=== PATIENT | male | born 1945 | race Caucasian/White ===

== ENCOUNTER 2020-04-23 11:46 | Outpatient (CLI) | payer MEDICARE, SELFPAY ==
--- NOTE | ~2020-04-23 | CT_ITS ---
EXAMINATION: CT brain wo con DATE: 04/23/2020 12:28 INDICATION: Transient cerebral ischemic attack TECHNIQUE: Computed tomography (CT) of the head was performed without intravenous contrast. The dose- length product was 605.33 mGy-cm. Automated exposure control and iterative reconstruction technique w ere employed. COMPARISON: None FINDINGS: No acute intracranial hemorrhage, infarction, mass or mass effect. No ventriculomegaly or m idline shift. Basilar cisterns are patent. There are scattered mild periventricular and subcortical w jamie matter changes, most likely related to small vessel ischemic disease (microangiopathy). Paranasa l sinuses and mastoids are pneumatized. No depressed skull fractures. IMPRESSION: 1. No acute intracranial abnormality. 2: Chronic age-related findings. Reviewed, dictated and finalized at location B. IC POLICY MEDIATOR
--- NOTE | ~2020-04-23 | US_ITS ---
EXAMINATION: US carotid duplex BI EXAM DATE: 04/23/2020 12:40 INDICATION: Half an hour episode of expressive aphasia. TECHNIQUE: Grayscale, color and pulsed Doppler images of the cervical carotid arteries were obtained . The degree of vessel stenosis is placed in one of the following categories: normal, <50% stenosis, 50-69% stenosis, >=70% stenosis but less than near-occlusion, near-occlusion, or occlusion. Note that percent stenosis relative to normal distal artery lumen diameter is indirectly measured from velocit y measurements as described by Tejinder, et al. Radiology 2003; 229:340-346. There is no prior study fo r comparison. FINDINGS: RIGHT SIDE: Right common carotid artery peak systolic velocity (PSV in cm/s): 102 Right bulb/internal carotid artery peak systolic velocity (PSV in cm/s): 93 Right internal carotid artery end diastolic velocity (EDV in cm/s): 13 Right ICA/CCA peak systolic ratio: 0.9 Right external carotid artery peak systolic velocity (PSV in cm/s): 80 Right vertebral artery antegrade flow: yes There is no focal plaque identified. LEFT SIDE: Left common carotid artery peak systolic velocity (PSV in cm/s): 105 Left bulb/internal carotid artery peak systolic velocity (PSV in cm/s): 62 Left internal carotid artery end diastolic velocity (EDV in cm/s): 17 Left ICA/CCA peak systolic ratio: 0.6 Left external carotid artery peak systolic velocity (PSV in cm/s): 117 Left vertebral artery antegrade flow: yes There is no focal plaque identified. IMPRESSION: 1. Normal right internal carotid artery. 2. Normal left internal carotid artery. Reviewed, dictated and finalized at location A. WELDER
== END 2020-04-23 11:47 | disposition home or self-care (01) ==
PROVIDERS: PCP Internal Medicine; Visit Provider Internal Medicine
DX: G45.9 Transient cerebral ischemic attack, unspecified (principal)
CPT/HCPCS: 70450; 93880

== ENCOUNTER 2020-04-27 12:47 | Outpatient (CLI) | payer MEDICARE, SELFPAY ==
--- NOTE | 2020-04-27 13:00 | ECHO_ITS ---
Patient Info Name: Kody Paul Age: 74 years : 1945 Gender: Male Ht: 69 in Wt: 165 lbs BSA: 1.92 m2 BP: 143 / 90 mmHg Exam Date: 04/27/2020 1:14 PM Exam Location: [facility] Patient Status: Outpatient Admit Date: 04/27/2020 Staff Ordering Physician: Robert Yo MD Transition Mgr: Nilsa Guadarrama RDCS Attending Provider: Robert Yo MD Exam Type: CA echo doppler w bubble study Study Info Indications G45.9 - Transient cerebral ischemic attack, unspecified Complete two-dimensional, color flow and Doppler transthoracic echocardiogram is performed with agitated saline. Contrast/Agitated Saline Contrast/Ag. Saline: Agitated Saline Amount: 10.00 ml Administered By: Juma Yeager RN New IV Access: Inner Forearm and Right Site Condition: IV removed and No extravasation Summary 1. Left ventricular chamber dimension is normal. 2. Left ventricular systolic function is normal, estimated at 55-60%. 3. The left ventricular diastolic function is grade I diastolic dysfunction. 4. E/e' 8 is minimally elevated. 5. There is mild aortic valve sclerosis. 6. No pulmonary hypertension, estimated pulmonary arterial systolic pressure is 28 mmHg. Left Ventricle E/e' 8 is minimally elevated. Left ventricular chamber dimension is normal. Left ventricular systolic function is normal, estimated at 55-60%. The left ventricular diastolic function is grade I diastolic dysfunction. Right Ventricle Right ventricular chamber dimension is normal. Right ventricular systolic function is normal. Left Atria Left atrial chamber dimension is normal. Right Atria Right atrial chamber dimension is normal. Aortic Valve The aortic valve is trileaflet. There is mild aortic valve sclerosis. There is no aortic valve stenosis. There is no aortic valve regurgitation. Pulmonic Valve There is no pulmonic regurgitation. Mitral Valve There is no mitral valve stenosis. There is no mitral valve regurgitation. Tricuspid Valve There is no tricuspid valve regurgitation. No pulmonary hypertension, estimated pulmonary arterial systolic pressure is 28 mmHg. Pericardium/Pleural There is no pericardial effusion. Inferior Vena Cava Normal inferior vena cava with >50% collapse upon inspiration consistent with normal right atrial pressure, 5 mmHg. Aorta The aortic root size at the sinus of Valsalva is normal. Left Ventricular Outflow Tract Name Value Normal LVOT 2D LVOT Diameter 1.9 cm LVOT Doppler LVOT Peak Gradient 2 mmHg LVOT Mean Gradient 1 mmHg LVOT VTI 14 cm LVOT VTI/AV VTI Ratio 0.5 LVOT Stroke Volume 42 ml LVOT CO 2.2 l/min LVOT CI 1.1 l/min/m2 Mitral Valve Name Value Normal
== END 2020-04-27 12:48 | disposition home or self-care (01) ==
PROVIDERS: PCP Internal Medicine; Visit Provider Internal Medicine
DX: G45.9 Transient cerebral ischemic attack, unspecified (principal)
CPT/HCPCS: 93306; 96375

== ENCOUNTER 2022-04-12 11:26 | Emergency (ER) | payer MEDICARE, SELFPAY ==
[2022-04-12] VITALS (26 sets, daily range): BP systolic 125–160; BP diastolic 74–91; PULSE 69–90; RESP 14–25; TEMP 36.6–37.1; O2SAT 94–100
--- NOTE | ~2022-04-12 | CT_ITS ---
EXAMINATION: CT brain wo con DATE: 04/12/2022 14:56 INDICATION: Headache. Right eye visual loss. TECHNIQUE: Computed tomography (CT) of the head was performed without intravenous contrast. The mA wa s adjusted according to patient size. Iterative reconstruction technique was employed. The dose-lengt h product was 605.33 mGy-cm. COMPARISON: Head CT 04/23/2020 FINDINGS: There is an acute intraparenchymal hematoma in left occipital lobe with surrounding vasogen ic edema. There are scattered areas of low attenuation in the cerebral white matter. There is no acut e ischemic infarct or abnormal mass lesion. The ventricles are normal in size. There is mild mucosal thickening in the paranasal sinuses. The orbits are normal. The mastoid air cells are normal. IMPRESSION: 1. Acute intraparenchymal hematoma in left occipital lobe. 2. Moderate nonspecific cerebral white matter disease, which likely represents chronic small vessel i schemic disease. Reviewed, dictated and finalized at location A. OBIOLOGY LAB MANAGER IMPRESSION: 1. Acute intraparenchymal hematoma in left occipital lobe. 2. Moderate nonspecific cerebral white matter disease, which likely represents chronic small vessel ischemic disease.
--- NOTE | 2022-04-12 13:13 | ECG_ITS ---
Measurements Intervals [place] Rate: 68 P: 60 UT: 192 QRS: 17 QRSD: 97 T: 51 QT: 374 QTc: 400 Interpretive Statements SINUS RHYTHM INCOMPLETE RIGHT BUNDLE BRANCH BLOCK BORDERLINE ECG NO PREVIOUS ECG AVAILABLE FOR COMPARISON Electronically Signed On 04-12-2022 14:11:53 [employer] by Luis Enrique Thomas D.O.
[2022-04-12 13:28] LABS: Basophils Percent Auto 0.6 % (0.2-1.2); Eosinophils Absolute Auto 0.3 K/mm3 (0-0.3); Eosinophils Percent Auto 4.6 % (0-4.4); Hematocrit 41.7 % (42.0-52.0); Hemoglobin 13.4 g/dL (14.0-18.0); Immature Granulocyte Absolute 0.02 K/mm3 (0.00-0.031); Immature Granulocyte Percent A 0.3 % (0-0.5); Lymphocytes Absolute Auto 1.42 K/mm3 (0.9-3.2); Lymphocytes Percent Auto 20.4 % (18.3-44.2); Mean Corpuscular HGB Conc 32.1 g/dl (32-36); Mean Corpuscular Hemoglobin 31.4 pg (26-34); Mean Corpuscular Volume 97.7 fl (80-100); Mean Platelet Volume 9.6 fl (7.4-10.4); Monocytes Absolute Auto 0.9 K/mm3 (0.1-0.6); Monocytes Percent Auto 12.5 % (2.6-8.5); Neutrophils Absolute Auto 4.3 K/mm3 (1.3-6.7); Neutrophils Percent Auto 61.6 % (45.5-73.1); Platelet Count Result 223 k/mm3 (150-375); Red Blood Count 4.27 M/mm3 (4.6-6.20); Red Cell Distribution Width 12.5 % (11.5-14.5)
[2022-04-12 13:41] LABS: Alanine Aminotransferase 39 U/L (6-50); Albumin Level 4.3 g/dL (3.5-5.1); Alkaline Phosphatase 91 U/L (38-126); Anion Gap 8 mmol/L (8-16); Aspartate Amino Transferase 32 U/L (17-59); Bilirubin,Total 1.1 mg/dL (0.2-1.3); Blood Urea Nitrogen 15 mg/dL (9-20); Carbon Dioxide 24 mmol/L (22-30); Chloride 104 mmol/L (98-107); Estimated CRCL calculation 75 ml/min; Estimated Glomerular Filt Rate > 60; Glucose 132 mg/dL (65-110); Potassium 4.2 mmol/L (3.4-5.0); Sodium 136 mmol/L (137-145)
[2022-04-12 14:24] LABS: INR 1.1; Prothrombin Time 13.7 Seconds (11.1-14.7)
[2022-04-12 14:25] LABS: Partial Thromboplastin Time 26.7 SECONDS (22.3-36.8)
--- NOTE | 2022-04-12 15:16 | ED.NEUROSD ---
HPI - Neuro Symptoms/Deficit General Chief Complaint: Neuro Symptoms/Deficit <Martina Restrepo PA-C - Last Filed: 04/12/22 18:13> Stated Complaint: slight vision loss (R)and headache since yesterday <Martina Restrepo PA-C - Last Filed: 04/12/22 18:13> Time Seen by Provider: 04/12/22 14:18 <Martina Restrepo PA-C - Last Filed: 04/12/22 18:13> Source: patient <DOROTHY Hinds Last Filed: 04/12/22 18:13> Mode of arrival: ambulatory <DOROTHY Hinds Last Filed: 04/12/22 18:13> Limitations: no limitations <DOROTHY Hinds Last Filed: 04/12/22 18:13> History of Present Illness HPI Narrative: This is a 76 year old male that presents to the ER for vision problems ongoing since yesterday. Reports when he woke up yesterday and tried to read the paper he noted that he was having trouble with the right side of his vision. Reports he made and appointment and saw an manager pharmacy this morning. He was prompted to be seen in the ER for further evaluation. He denies any recent injuries. No other focal neurologic symptoms. He is not on any anticoagulation. <Martina Restrepo PA-C - Last Filed: 04/12/22 18:13> Related Data Home Medications: Home Medications Medication Instructions Recorded Confirmed aspirin 81 mg tablet,delayed 81 mg PO DAILY 05/01/19 02/10/22 release (Adult Low Dose Aspirin) coenzyme Q10 100 mg capsule (Co 100 mg PO DAILY 05/01/19 02/10/22 Q-10) multivitamin 1 tablet PO DAILY 05/01/19 02/10/22 omega-3 fatty acids 1,000 mg 1,000 mg PO BID 05/01/19 02/10/22 capsule (Fish Oil Concentrate) metformin 500 mg tablet 1,000 mg PO BID 04/23/20 02/10/22 insulin glargine 100 unit/mL (3 12 unit subcut DAILY 02/10/22 02/10/22 mL) subcutaneous pen (Lantus Solostar U-100 Insulin) <Martina Restrepo PA-C - Last Filed: 04/12/22 18:13> Allergies/Adverse Reactions: Allergies Allergy/AdvReac Type Severity Reaction Status Date / Time No Known Allergies Allergy Verified 02/10/22 11:03 <Martina Restrepo PA-C - Last Filed: 04/12/22 18:13> Review of Systems Review of Systems: CONSTITUTIONAL: Denies fever EYES: Reports visual changes. Denies redness, or discharge. CARDIOVASCULAR: Denies chest pain GASTROINTESTINAL: Denies abdominal pain, nausea, vomiting NEUROLOGIC: Reports headache. Denies numbness, or weakness. <Martina Restrepo PA-C - Last Filed: 04/12/22 18:13> All systems reviewed & are unremarkable except as noted in HPI and below <Martina Restrepo PA-C - Last Filed: 04/12/22 18:13> PMFSH Past Medical History Medical History: Medical History (Updated 04/12/22 @ 15:33 by Martina Restrepo PA-C) Benign prostatic hyperplasia Mixed hyperlipidemia TIA (transient ischemic attack) Type 2 diabetes mellitus without complication, with long-term current use of insulin <Martina Restrepo PA-C - Last Filed: 04/12/22 18:13> Family History Family History: Family History Sibling Diabetes mellitus, Onset Age: 85 Family history of obesity, Onset Age: 75 Patient's sister is , Onset Age: 86 Family history of Alzheimer's disease, Onset Age: 75 Father Patient's father is , Onset Age: 76 Mother Family history of Alzheimer's disease, Onset Age: 84 <Martina Restrepo PA-C - Last Filed: 04/12/22 18:13> Social History Social History: Social History Smoking status: Never smoker Second hand tobacco smoke exposure: No Alcohol intake: never Substance use: never <Martina Restrepo PA-C - Last Filed: 04/12/22 18:13> Exam Narrative: GENERAL: Well-appearing, well-nourished, and in no acute distress. HEAD: Normocephalic, atraumatic. EYES: EOMI. Right eye is dilated as he was just at his manager pharmacy ENT: Nares clear, no rhinorrhea or epistaxis. Mucous membrane
[2022-04-12] MEDS: levETIRAcetam 1000MG/NACL100ML 1,000 MG/100 ML BAG 400 MG IVPB (16:10)
[2022-04-12 16:40] LABS: SARS-CoV-2 RNA PCR Negative
[2022-04-12] MEDS: TUBING, BLOOD SET 1 EACH XX (18:23)
[2022-04-12] MEDS: SODIUM CHLORIDE 0.9% IV 250 ML 30 ML IV CONT (18:23)
[2022-04-12 18:30] LABS: Glucose Point of Care 115 mg/dl (65-105)
== END 2022-04-12 18:37 | disposition short-term general hospital (02) ==
PROVIDERS: Physician Assistant; Emergency Provider Emergency Medicine; PCP Internal Medicine
DX: I61.8 Other nontraumatic intracerebral hemorrhage (principal); Z20.822 Contact with and (suspected) exposure to COVID-19; E11.9 Type 2 diabetes mellitus without complications; Z79.4 Long term (current) use of insulin; Z86.73 Personal history of transient ischemic attack (TIA), and cerebral infarction without residual deficits; E78.5 Hyperlipidemia, unspecified; H53.9 Unspecified visual disturbance
CPT/HCPCS: 36415; 36430; 70450; 80053; 82948; 85025; 85610; 85730; 86900; 86901; 93005; 96365; 99291; J1953; J7050; P9034; U0003; U0005

== ENCOUNTER → 2022-06-10 12:02 | Outpatient (CLI) | payer MEDICARE, SELFPAY ==
--- NOTE | ~2022-06-10 | MR_ITS ---
MRI of the brain Clinical History: Intraparenchymal hemorrhage Technique: Axial and sagittal T1-weighted images were acquired. These were followed by axial T2-weigh gigi, diffusion weighted, gradient, and FLAIR images. Following intravenous administration of 14 cc Mu ltiHance gadolinium, T1-weighted fat-sat imaging was performed in the axial and coronal planes. Correlation made with noncontrast brain CT dated 04/12/2022. Findings: There is signal abnormality in the left occipital lobe at the site of previous acute parenc hymal hemorrhage, with low signal on gradient images, focal curvilinear peripheral intrinsic T1 hyper intensity, and curvilinear peripheral T2 hypointensity. Postcontrast images demonstrate apparent lavonne pheral enhancement, somewhat questionable nodular area of enhancement (series 9 image 12). There is mild to moderate chronic background white matter disease otherwise and FLAIR images. No othe r abnormal postcontrast enhancement identified. Ventricles and subarachnoid spaces are unremarkable. Orbits are unremarkable. Paranasal sinuses and m astoid air cells are clear. Major intracranial flow voids are intact. IMPRESSION: Focal enhancement in the left occipital lobe at the site of prior hemorrhage, with surrounding hemosi rika. Enhancement is somewhat nonspecific, and could be seen in the setting of subacute evolving hem atoma, however underlying enhancing small mass is not excluded. Small cavernoma is a potential consid eration, although cavernoma typically does not enhance. Additional follow-up pre and postcontrast MR in 3 months recommended to reassess. Background mild to moderate chronic microvascular ischemic changes. Reviewed, dictated and finalized at location . ROOM CLERK IMPRESSION: Focal enhancement in the left occipital lobe at the site of prior hemorrhage, w ith surrounding hemosiderin. Enhancement is somewhat nonspecific, and could be seen in the setting of subacute evolving hematoma, however underlying enhancing small mass is not excluded. Small cavernoma is a potential consideration, alth ough cavernoma typically does not enhance. Additional follow-up pre and postcon trast MR in 3 months recommended to reassess. Background mild to moderate chronic microvascular ischemic changes.
== END ==
PROVIDERS: PCP Internal Medicine; Visit Provider Neurological Surgery
DX: I61.9 Nontraumatic intracerebral hemorrhage, unspecified (principal)
CPT/HCPCS: 70553; A9577

== ENCOUNTER → 2022-09-19 09:44 | Outpatient (CLI) | payer MEDICARE, SELFPAY ==
--- NOTE | ~2022-09-19 | MR_ITS ---
EXAMINATION: MR brain/brain stem wo/w con DATE: 09/19/2022 10:32 INDICATION: Nontraumatic intracranial hemorrhage, unspecified. TECHNIQUE: Magnetic resonance imaging (MRI) of the brain and brainstem was performed without and with 14 mL MultiHance intravenous contrast. COMPARISON: Brain MRI 06/10/2022, head CT 04/12/2022 FINDINGS: There is chronic encephalomalacia in left occipital lobe. There is contrast enhancement in this area measuring 10 x 5 mm, decreased from 12 x 10 mm on 06/10/2022. There are scattered areas of n onspecific increased T2-weighted signal intensity in the cerebral white matter. The ventricles are no rmal in size. The orbits are normal. There is a mucous retention cyst in left maxillary sinus. The ma stoid air cells are normal. IMPRESSION: 1. Chronic encephalomalacia from a prior episode of intraparenchymal hemorrhage in left occipital lob e with interval improvement in enhancement in this area, likely benign. 2. Stable moderate nonspecific cerebral white matter disease, which likely represents chronic small v essel ischemic disease. Reviewed, dictated and finalized at location A. IMPRESSION: 1. Chronic encephalomalacia from a prior episode of intraparenchymal hemorrhage in left occipital lobe with interval improvement in enhancement in this area, likely benign. 2. Stable moderate nonspecific cerebral white matter disease, which likely repr esents chronic small vessel ischemic disease.
== END ==
PROVIDERS: Visit Provider Neurological Surgery
DX: I62.9 Nontraumatic intracranial hemorrhage, unspecified (principal); R93.0 Abnormal findings on diagnostic imaging of skull and head, not elsewhere classified
CPT/HCPCS: 70553; A9577

== ENCOUNTER → 2023-02-20 09:40 | Outpatient (CLI) | payer MEDICARE, SELFPAY ==
--- NOTE | ~2023-02-20 | MR_ITS ---
EXAMINATION: MR brain/brain stem wo/w con DATE: 02/20/2023 10:31 INDICATION: Intracranial hemorrhage. TECHNIQUE: Magnetic resonance imaging (MRI) of the brain and brainstem was performed without and with 14 mL MultiHance intravenous contrast. COMPARISON: Brain MRI 09/19/2022, head CT 04/12/2022 FINDINGS: There is chronic encephalomalacia in left occipital lobe with old blood products. There are scattered areas of nonspecific increased T2-weighted signal intensity in the cerebral white matter. There is no acute ischemic infarct or abnormal mass lesion. The ventricles are normal in size. There is a mucous retention cyst in left maxillary sinus. The mastoid air cells are normal. The orbits are normal. IMPRESSION: 1. Chronic encephalomalacia in left occipital lobe with old blood products. 2. Stable moderate nonspecific cerebral white matter disease, which likely represents chronic small v essel ischemic disease. Reviewed, dictated and finalized at location E. IMPRESSION: 1. Chronic encephalomalacia in left occipital lobe with old blood products. 2. Stable moderate nonspecific cerebral white matter disease, which likely repr esents chronic small vessel ischemic disease.
== END ==
DX: I62.9 Nontraumatic intracranial hemorrhage, unspecified (principal); R90.82 White matter disease, unspecified
CPT/HCPCS: 70553; A9577

== ENCOUNTER 2024-09-11 15:55 | Emergency (ER) | payer MEDICARE, SELFPAY ==
--- NOTE | 2024-09-11 16:03 | ED_ITS ---
HPI - Nausea/Vomiting/Diarrhea General Chief complaint: Nausea/Vomiting/Diarrhea Stated complaint: stomach issues Time Seen by Provider: 09/11/24 16:19 Source: patient Mode of arrival: ambulatory Limitations: no limitations History of Present Illness HPI Narrative: here for stomach issues since Monday. he reports on Monday was throwing up a lot. He reports on Monday he had fever and body aches. He also reports headaches. He reports on Monday /Monday he had diarrhea, and now his stools are soft but no longer diarrhea. He reports he is overall feeling better however still nauseous. He does report he slept all day on Monday and still feels somewhat tired and weak. he is pushing fluids and doing his best to drink as much as possible. He reports drinking a sugar free Gatorade yesterday. Today he reports breakfast this morning of toast and eggs. He reports a plain lunch as well with [place] and sugar free Jell-O. he reports drinking 32 oz of water so far today. he reports taking Tylenol with some relief. He has a history of diabetes in the Dexcom device. He reports following his blood sugar frequently and adjusting his insulin per sick day plan. He reports on Monday and Monday his blood sugars were initially high but now they have come down and are in his normal range again. Denies any hypoglycemia. Denies any cough or shortness of breath. Denies any sick contacts. Denies anyone else sick at home. Related Data Home Medications ?Medication ?Instructions ?Recorded ?Confirmed ?Last Taken ?Type coenzyme Q10 100 mg capsule (Co 100 mg PO DAILY 05/01/19 09/11/24 Unknown History Q-10) multivitamin 1 tablet PO DAILY 05/01/19 09/11/24 Unknown History omega-3 fatty acids 1,000 mg 1,000 mg PO DAILY 02/23/23 09/11/24 Unknown History capsule (Fish Oil Concentrate) Allergies Allergy/AdvReac Type Severity Reaction Status Date / Time No Known Allergies Allergy Verified 09/11/24 15:59 Review of Systems Review of Systems: CONSTITUTIONAL: Denies chills, or sweats. Reports fever. reports feeling tired. EYES: Denies visual changes, redness, or discharge. ENT: Denies rhinorrhea, congestion, sore throat, or otalgia. CARDIOVASCULAR: Denies chest pain, palpitations, or edema. RESPIRATORY: Denies cough or dyspnea. GASTROINTESTINAL: Denies abdominal pain. Reports nausea, vomiting, and diarrhea. GENITOURINARY: Denies dysuria or hematuria. SKIN: Denies rash or itching. MUSCULOSKELETAL: Reports body aches. NEUROLOGIC: Denies numbness, or weakness. reports headaches. PSYCHIATRIC: Denies anxiety or depression. All other systems reviewed are negative, except as documented in HPI. [facility] Past Medical History Medical History Cataracts, both eyes Intracranial hemorrhage TIA (transient ischemic attack) Benign prostatic hyperplasia Mixed hyperlipidemia Type 2 diabetes mellitus without complication, with long-term current use of insulin Family History Family History Sibling Diabetes mellitus, Onset Age: 85 Family history of obesity, Onset Age: 75 Patient's sister is , Onset Age: 86 Family history of Alzheimer's disease, Onset Age: 75 Father Patient's father is , Onset Age: 76 Mother Family history of Alzheimer's disease, Onset Age: 84 Social History Social History Smoking status: Never smoker Second hand tobacco smoke exposure: No Alcohol intake: never Substance use: never Do You Feel Safe in your Home?: Yes Lack of Transportation: No Lack of Food: Never True Current Housing: I Have Housing Concerned About Future Housing: No Difficulty Paying Gas/Electric Bills: No Difficulty Paying for Meds: No Currently Unemployed: No Difficulty w/ Childcare or Family Care: No Living arrangements: with family Occupation/Education: retired Gender identity (if verbalized by the patient): Male Sexual Orientation (if Verbalized by the Patient): Straight or Heterosexual Spiritual care concerns: No Agree to blood products: Yes Comments At time of signature, I have reviewed and agree with nursing past medical, surgical, social and family history unless otherwise noted. Please see nursing chart for further information. There is no relevant family history pertinent to the presenting complaint. Exam Narrative: GENERAL: This is a well-nourished, well-developed patient, in no apparent distress. HEAD: normocephalic, atraumatic. EYES: Sclera clear/white. EARS: External ears normal without drainage. NOSE: External nose normal with no obvious nasal discharge. THROAT: Mucous membranes moist. NECK: Trachea midline. CARDIOVASCULAR: Regular rate and rhythm without murmurs, gallops, or rubs. RESPIRATORY: Clear to auscultation. Breath sounds equal bilaterally. No wheezes, rales, or rhonchi. GASTROINTESTINAL: Abdomen soft, non-tender, nondistended. Bowel sounds are hyperactive.No guarding. SKIN: warm, Dry, intact with no suspicious lesions or rash, good texture and turgor. NEURO: awake, alert, and oriented to person, place and time. There were no obvious focal neurologic abnormalities. EXTREMITIES: No joint tenderness, effusion, or edema noted. Course Course Level of Care: Express Care Visit Vital Signs Vital signs: Reviewed MDM - Nausea/Vomiting/Diarrhea MDM Narrative Medical decision making narrative: Patient is aware of diagnosis, understands and agrees to treatment plan. Anticipatory guidance was given. reviewed he should continue following his Dexcom closely as well as his diabetes sick plan. He should continue to push fluids including sugar free electrolyte containing fluids such as Gatorade or Powerade. Continue sugar free Jell-O. Reviewed BRAT diet and continuing soft plain foods as tolerated. Discussed physical exam findings with patient and reviewed prescriptions. Patient agrees to follow-up as directed and is aware of reasons to seek care at the emergency department. Discharge instructions were reviewed with the patient, as well as provided in writing per nursing staff. All questions have been answered, and the patient denies any further questions related to discharge or discharge plan. Discharge Plan Discharge Clinical Impression: Gastroenteritis Patient Disposition: Home Condition: Stable Instructions: Gastroenteritis (ED), Acute Nausea and Vomiting (ED) Additional Instructions: Take medications as prescribed and follow printed instructions. May take over the counter acetaminophen and/or ibuprofen by mouth as needed/dir ected for pain/fever. Push fluids and soft diet; advance as tolerated. Nutrition is important - eat small frequent meals. Call your Primary Care Doctor today to make a follow-up appointment. Go to the ER for any worsening symptoms or concerns Patient Language: Occitan Prescriptions: New ondansetron 4 mg tablet,disintegrating 4 mg PO Q6H PRN (Reason: nausea and vomiting) Qty: 12 0RF No Action insulin glargine [Basaglar KwikPen U-100 Insulin] 100 unit/mL (3 mL) insulin pen 16 unit subcut QPM Qty: 15 1RF atorvastatin 40 mg tablet See Rx Instructions .ROUTE .COMPLEX Qty: 90 1RF Dose Instruction: Take 1 tablet by mouth once daily Rx Instructions: Take 1 tablet by mouth once daily finasteride 5 mg tablet See Rx Instructions .ROUTE .COMPLEX Qty: 90 1RF Dose Instruction: Take 1 tablet by mouth once daily Rx Instructions: Take 1 tablet by mouth once daily glipizide 5 mg tablet See Rx Instructions .ROUTE .COMPLEX Qty: 180 1RF Dose Instruction: Take 1 tablet by mouth twice daily Rx Instructions: Take 1 tablet by mouth twice daily metformin 500 mg tablet See Rx Instructions .ROUTE .COMPLEX Qty: 360 1RF Dose Instruction: Take 2 tablets by mouth twice daily Rx Instructions: Take 2 tablets by mouth twice daily coenzyme Q10 [Co Q-10] 100 mg capsule 100 mg PO DAILY multivitamin Tablet 1 tablet PO DAILY omega-3 fatty acids [Fish Oil Concentrate] 1,000 mg capsule 1,000 mg PO DAILY (DME) lancets 33 gauge misc See Rx Instructions .Route Qty: 100 1RF Rx Instructions: check blood sugar 3 times daily (DME) Dexcom G7 Video Network Engineer Misc See Rx Instructions .Route Qty: 1 0RF Rx Instructions: Continuous glucose monitoring As directed (DME) Dexcom G7 Sensor Device See Rx Instructions .Route Qty: 3 11RF Rx Instructions: Continuous glucose monetor, replace every 10 days (DME) OneTouch Ultra Test Strip See Rx Instructions .Route Qty: 300 3RF Rx Instructions: Test glucose 3xday As directed (DME) pen needle, diabetic 31 gauge x 3/16 needle See Rx Instructions .Route Qty: 100 2RF Rx Instructions: As directed Follow-up/Referrals: Mary Parra APRN [Primary Care Provider] - Time of Disposition: 16:46
[2024-09-11 16:04] VITALS: BP 110/67; PULSE 83; RESP 16; TEMP 36.7; O2SAT 98
[2024-09-11 16:32] LABS: EDCOVIDSCREEN Negative (Negative); EDINFLUASCREEN Negative (Negative); EDINFLUBSCREEN Negative (Negative)
--- OUTSIDE RECORDS SUMMARY | 2024-09-11 17:34 | XMS_ITS | Encounter Summary ---
Author Organization [facility] Healthcare Address [address] [place] [address] Care Team Providers Care Branch Services Manager Name Role Phone Robert Yo MD Primary Care Provider [phone] Encounter Details Date Type Department Care Team (Late st Contact Info) Description 08/13/2024 Results Follow-Up [facility] of [facility] [address] [facility] [address] [place] [address] [place]és[place] [address] [address] Social History Tobacco Use Types Packs/Day Years Used Date Smoking Tobacco: Never Smokeless Tobacco: Never Sex and Gender Information Value Date Recorded Sex Assigned at Not on file Legal Sex 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
--- OUTSIDE RECORDS SUMMARY | 2024-09-11 17:34 | XMS_ITS | Continuity of Care Document ---
Author Organization [facility] Address [address] [facility] [address] [place] [address] Phone Care Team Providers Care Medical Office Clerk Name Role Phone Paige Morejon Unavailable Unavailable Procedures Procedure Date Office/outpatient Visit, Est Dilated Retinal Exam W Interpretation Oc Office/outpatient Visit, Est Visual Field Examination(s) Office/outpatient Visit, Est Eye Exam & Treatment Eye Exam & Treatment Advance Directives Directive Yes / No Effective Date File Name No Information Encounters Encounter Description Practice Location Reason(s) For Visit Diagnoses Date Provider Providers Copied on Encounter Office/outpat ient Visit, [facility], [address] [place] [address] [address], [place], [place], [id number], [place] tel:[phone] [facility] No Information 8201 0 Darleen Alfredo [address] , [address], [place], [place], [facility], [place]. tel:[phone] Office/outpat ient Visit, [facility], [address] [place] [address] [address], [place], [place], [id number], [place] tel:[phone] [facility] No Information 3-201 0 Darleen Alfredo [address] , [address], [place], [address], [place]. tel:[phone] [facility], [address] [place] [address] [address], [place], [place], [id number], tel:[phone] [facility] No Information Dec-0 4-200 9 Darleen Gibson. [address] , [address], [place], [place], [facility], . tel:[phone] Referring Provider: Ariadne [address], [place], [place], [facility]. tel:[phone] Office/outpat ient Visit, [facility], [address] [place] [address] [address], [place], [place], [id number], tel:[phone] [facility] No Information Oct-1 3-200 9 Darleen Alfredo [address] [facility] , [address], [place], [place], [facility], . tel:[phone] [facility], [address] [place] [address] [address], [place], [place], [id number], tel:[phone] [facility] No Information Sep-0 9-200 8 Darleen Gibson. [address] , [address], [place], [place], [facility], . tel:[phone] [facility], [address] [place] [address] [address], [place], [place], [id number], tel:[phone] [facility] No Information Aug-2 8-200 7 Darleen Alfredo [address] , [address], [place], [place], [facility], . tel:[phone] Family History Family Member Type Diagnosis Age At Onset No Information Payers Payer name Insurance type Covered alliance party ID Authoriza tion(s) [place] [id number] [place] [id number] Social History Type Description Quantity Date Captured Comments Sex Male Smoking Status No Information Chief Complaint And Reason For Visit No Information Reason For Referral Reason For Referral No Information History Of Present Illness Encounter Date Complaint History Of Prese nt Illness No Information Functional Status Date Functional Assessmen t No Information Instructions Date Instruction Additional Infor mation No Information Assessments Type Assessment Date No Information Patient Care Teams Name Effective Dates (start - stop) Status Members No Information
--- OUTSIDE RECORDS SUMMARY | 2024-09-11 17:34 | XMS_ITS | Referral Summary ---
Author Organization [facility] Medical Office Building B Address [address] [place] [address] Care Team Providers Care Board Certified Orthodontist Name Role Phone Robert Yo MD Primary Care Provider [phone] Encounters Date Type Department Care Team Description 08/14/2024 Telephone [facility] Specialists of [address] [address] César Bright MD 08/13/2024 Results Follow-Up [facility] Specialists of [address] [address] César Bright MD 08/12/2024 3:17 PM CDT - 08/12/2024 11:59 PM CDT Hospital Encounter [address] [address] Type 2 diabetes mellitus with hyperglycemia, with long-term current use of insulin (HCC) Discharge Disposition: Discharge to home or self care 08/12/2024 9:45 AM CDT Lab [facility] Outpatient Lab at [address] [address] Multiple-type hyperlipidemia (Primary Dx) 08/12/2024 9:30 AM CDT Office Visit [facility] Diabetes and Endocrinology [address] [place] [address] Kush Currie, César Currie MD Type 2 diabetes mellitus with hyperglycemia, with long-term current use of insulin ([facility]) (Primary Dx); Hyperlipidemia associated with type 2 diabetes mellitus (HCC) from Last 3 Months Allergies No known active allergies Medications finasteride (PROSCAR) 5 mg tablet TAKE 1 TABLET BY MOUTH DAILY 90 tablet 05/18/2017 Active atorvastatin (LIPITOR) 40 mg tablet 06/21/2020 Active lancets (OneTouch Delica Lancets) 33 gauge misc USE TO CHECK GLUCOSE THREE TIMES DAILY DX E11.65, Z79.4 300 each 3 12/15/2021 Active BD Ultra-Fine Mini Pen Needle 31 gauge x /16 needle USE ONCE DAILY 100 each 3 10/07/2022 Active blood glucose diagnostic (OneTouch Ultra Blue Test Strip) strip Use to test blood glucose 3 times each day DX E11.65, Z79.4 300 each 2 04/18/2023 Active glipiZIDE (GLUCOTROL) 5 mg tabletIndicatio ns:Type 2 diabetes mellitus with hyperglycemia, with long-term current use of insulin ([facility]) Take 1 tablet by mouth twice daily 180 tablet 3 08/12/2024 Active metFORMIN (GLUCOPHAGE) 500 mg tabletIndicatio ns:Type 2 diabetes mellitus with hyperglycemia, with long-term current use of insulin ([facility]) TAKE 4 TABLETS BY MOUTH ONCE DAILY 360 tablet 3 08/12/2024 Active BASAGLAR 100 unit/mL (3 mL) pen for injectionIndica tions:Type 2 diabetes mellitus with hyperglycemia, with long-term current use of insulin ([facility]) Inject 14 Units under the skin daily 15 mL 3 08/12/2024 Active Active Problems Problem Noted Date Diagnosed Date White matter abnormality on MRI of brain 023 Intracranial bleeding 04/12/2022 Multiple-type hyperlipidemia 06/24/2016 Overview (08/26/2016): Mixed hyperlipidemia Type 2 diabetes mellitus wit h hyperglycemia, with long-term current use of insulin 06/24/2016 Overview (08/26/2016): Type 2 diabetes mellitus with hyperglycemia, with long-term current use of insulin Tear of lateral meniscus of knee 11/04/2013 Knee pain 09/02/2013 Tear of medial meniscus of knee 09/02/2013 Osteoarthritis of knee 08/30/2013 Social History Tobacco Use Types Packs/Day Years Used Date Smoking Tobacco: Never Smokeless Tobacco: Never Tobacco Cessation:Counseling Given: Not Answered Sex and Gender Information Value Date Recorded Sex Assigned at Not on file Legal Sex 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 REVERSE ENGINEER Gender Identity Male 02/28/2019 9:33 AM CDT Sexual Orientation Not on file Last Filed Vital Signs Vital Sign Reading Time Taken Comments Blood Pressure 128/66 08/12/2024 9:15 AM CDT Pulse 62 08/12/2024 9:15 AM CDT Temperature 36.8 C (98.2 F) 04/13/2022 2:00 PM REVERSE ENGINEER Respiratory Rate 15 04/13/2022 4:00 PM REVERSE ENGINEER Oxygen Saturation 97% 04/13/2022 4:00 PM REVERSE ENGINEER Inhaled Oxygen Concentration - - Weight 72.1 kg (159 lb) 08/12/2024 9:15 AM CDT Height 172.7 cm (5' 8 ) 08/12/2024 9:15 AM CDT Body Mass Index 24.18 08/12/2024 9:15 AM CDT Plan of Treatment Not on file Procedures Procedure Name Priority Date/Time Associated Diagnosis Comments ALBUMIN CREATININE RATIO, URINE Routine 08/12/2024 12:00 PM CDT Type 2 diabetes mellitus with hyperglycemia, with long-term current use of insulin ([facility]) POCT HEMOGLOBIN A1C Routine 08/12/2024 9 :24 AM CDT Type 2 diabetes mellitus with hyperglycemia, with long-term current use of insulin ([facility]) POCT GLUCOSE Routine 08/12/2024 9:22 AM CDT Type 2 diabetes mellitus with hyperglycemia, with long-term current use of insulin ([facility]) COMPREHENSIVE METABOLIC PANEL Routine 04/26/2024 LIPID PANEL Routine 04/26/2024 DIABETIC EYE EXAM Routine 03/21/2023 HM DIABETES FOOT EXAM Routine 11/09/2017 from Last 3 Months or Most Recently Relevant to Health Maintenance Results * Albumin Creatinine Ratio, Urine (08/12/2024 12:00 PM CDT) Pathologist [facility] Albumin Ur <12.0 mg/L Comment: Interpretive Data No reference range established. Current interpretive data was last revised 2018. Creatinine Ur 37.9 mg/dL [facility] Comment: Interpretive Data No reference range established. Current interpretive data was last revised 2018. Albumin Creatinine Ratio, Ur See Comment 1 - 29 VALENTINO BREEN Comment:Unable to calculate Urine 08/12/2024 12:0 0 PM CDT 08/12/2024 3:20 PM CDT César Currie MD LAB URINE ORDERABLE S Final Result [facility] [address] [address] Department [place] [address] * POCT hemoglobin A1c (08/12/2024 9:24 AM CDT) [facility] Hemoglobin A1C, POC 6.7 4.0 - 5.6 % Capillary blood 08/12/2024 9 :24 AM CDT César Currie MD POINT OF CARE TEST ORDERABLES Final Result * POCT glucose (08/12/2024 9:22 AM CDT) Pathologist [facility] Glucose Blood, POC 250 mg/dL Blood 08/12/2024 9:22 AM CDT César Currie MD POINT OF CARE TEST ORDERABLES Final Result * (ABNORMAL) Lipid panel (04/26/2024) Pathologist [facility] SCRIBED Cholesterol, Total 111(A) <200 - 0 EXTERNAL LAB SCRIBED HDL 42(A) >40 - 0 EXTERNAL LAB SCRIBED LDL 54(A) <100 - 0 EXTERNAL LAB SCRIBED Triglycerides 66(A) <150 - 0 EXTERNAL LAB Blood 04/26/2024 Result [facility] Historical Provider MD LAB BLOOD ORDERABLES Julieta l Result EXTERNAL LAB * (ABNORMAL) Comprehensive metabolic panel (04/26/2024) SCRIBED Sodium 139 135 - 146 mmol/L EXTERNAL LAB SCRIBED Potassium 4.1 3.5 - 5.3 mmol/L EXTERNAL LAB SCRIBED Chloride 103 98 - 110 mmol/L EXTERNAL LAB SCRIBED Carbon Dioxide 31 20 - 32 mmol/L EXTERNAL LAB SCRIBED Urea Nitrogen (BUN) 18 7 - 25 mg/dl EXTERNAL LAB SCRIBED Creatinine 0.83 0.70 - 1.28 mg/dl EXTERNAL LAB SCRIBED Glucose 95 65 - 99 mg/dl EXTERNAL LAB SCRIBED Calcium 9.3 8.6 - 10.3 mg/dl EXTERNAL LAB SCRIBED Bilirubin 1.4(A) 0.2 - 1.2 mg/dl EXTERNAL LAB SCRIBED Plasma Protein 6.3 6.1 - 8.1 g/dl EXTERNAL LAB SCRIBED Albumin 4.3 3.6 - 5.1 g/dl EXTERNAL LAB SCRIBED Alkaline Phosphatase 69 35 - 144 Units/L EXTERNAL LAB SCRIBED Alanine Transaminase (ALT) 32 9 - 46 Units/L EXTERNAL LAB SCRIBED Aspartate Transaminase (AST) 25 10 - 35 Units/L EXTERNAL LAB SCRIBED eGFR in NonAfrican Tajik 89(A) >60 - 0 EXTERNAL LAB Blood 04/26/2024 Historical Provider LAB BLOOD ORDERABLES Julieta l Result EXTERNAL LAB * Diabetic Eye Exam (03/21/2023) 03/21/2023 Historical Provider HEALTH MAINTENANCE Final Result * DIABETES FOOT EXAM (11/09/2017) Pathologist Pending sale to [facility] Diabetic Foot Exam Unknown us Historical Provider HEALTH MAINTENANCE Final Result from Last 3 Months or Most Recently Relevant to Health Maintenance Insurance MEDICARE [facility] MEDICARE SUPPLEMENT INSURANCE [place] [id number] MEDICARE [facility] MEDICARE SUPPLEMENT INSURANCE Advance Directives For more information, please contact: [phone] * LIMITED - No CPR (Latest Code Status on File) Date Activated Date Inactivated Comments 04/12/2022 8:06 PM 04/13/2022 9:39 PM Question Answer Comments Provide aggressive medical m anagement before a full cardiopulmonary arrest occurs. Use antibiotics, IV Fluids, and medical treatment unless specifically selected below: No intubation * Full Code Date Activated Date Inactivated Comments 04/12/2022 7:59 PM 04/12/2022 8:06 PM Care Teams Board Certified Orthodontist Relationship Specialty Start Date End Date Robert Yo MD [address] [address] PCP - General Internal Medicine 01/14/21
--- OUTSIDE RECORDS SUMMARY | 2024-09-11 17:34 | XMS_ITS | Clinical Summary ---
Author Organization [facility] Medical Office Building B Address [address] [place] [address] Care Team Providers Care Technical Services Specialist Name Role Phone Robert Yo MD Primary Care Provider [phone] Allergies No known active allergies Medications finasteride (PROSCAR) 5 mg tablet TAKE 1 TABLET BY MOUTH DAILY 90 tablet 05/18/2017 Active atorvastatin (LIPITOR) 40 mg tablet 06/21/2020 Active lancets (OneTouch Delica Lancets) 33 gauge misc USE TO CHECK GLUCOSE THREE TIMES DAILY DX E11.65, Z79.4 300 each 3 12/15/2021 Active BD Ultra-Fine Mini Pen Needle 31 gauge x 3/16 needle USE ONCE DAILY 100 each 3 10/07/2022 Active blood glucose diagnostic (OneTouch Ultra Blue Test Strip) strip Use to test blood glucose 3 times each day DX E11.65, Z79.4 300 each 2 04/18/2023 Active glipiZIDE (GLUCOTROL) 5 mg tabletIndicatio ns:Type 2 diabetes mellitus with hyperglycemia, with long-term current use of insulin (HCC) Take 1 tablet by mouth twice daily 180 tablet 3 08/12/2024 Active metFORMIN (GLUCOPHAGE) 500 mg tabletIndicatio ns:Type 2 diabetes mellitus with hyperglycemia, with long-term current use of insulin (HCC) TAKE 4 TABLETS BY MOUTH ONCE DAILY 360 tablet 3 08/12/2024 Active BASAGLAR 100 unit/mL (3 mL) pen for injectionIndica tions:Type 2 diabetes mellitus with hyperglycemia, with long-term current use of insulin (HCC) Inject 14 Units under the skin daily [...] of knee 09/02/2013 Osteoarthritis of knee 08/30/2013 Encounters Date Type Department Care Team Description 08/14/2024 Telephone [facility] of [address] [address] César Bright MD 08/13/2024 Results Follow-Up [facility] of [address] [address] César Bright MD 08/12/2024 3:17 PM CDT - 08/12/2024 11:59 PM CDT Hospital Encounter [address] [address] Type 2 diabetes mellitus with hyperglycemia, with long-term current use of insulin ([facility]) Discharge Disposition: Discharge to home or self care 08/12/2024 9:45 AM CDT Lab [facility] Outpatient Lab at [address] [address] Multiple-type hyperlipidemia (Primary Dx) 08/12/2024 9:30 AM CDT Office Visit [facility] Diabetes and Endocrinology [address] [place] [address] César Bright MD Type 2 diabetes mellitus with hyperglycemia, with long-term current use of insulin (HCC) (Primary Dx); Hyperlipidemia associated with type 2 diabetes mellitus (HCC) from Last 3 Months Medical History Medical History Date Comments Diabetes mellitus (HCC) Diabetes mellitus Family History Medical History Relation Name Comments Diabetes Brother Diabetes mellit us; Diabetes Sister Diabetes mellit us; Relation Name Status Comments Brother Sister Social History Tobacco Use Types Packs/Day Years Used Date Smoking Tobacco: Never Smokeless Tobacco: Never Tobacco Cessation:Counseling Given: Not Answered Sex and Gender Information Value Date Recorded Sex Assigned at Not on file 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 Gender Identity Male 02/28/2019 9:33 AM CDT Sexual Orientation Not on file Obstetrics History Last Filed Vital Signs Vital Sign Reading Time Taken Comments Blood Pressure 128/66 08/12/2024 9:15 AM CDT Pulse 62 08/12/2024 9:15 AM CDT Temperature 36.8 C (98.2 F) 04/13/2022 2:00 PM WELDING LEAD BURNER Respiratory Rate 15 04/13/2022 4:00 PM WELDING LEAD BURNER Oxygen Saturation 97% 04/13/2022 4:00 PM WELDING LEAD BURNER Inhaled Oxygen Concentration - - Weight 72.1 kg (159 lb) 08/12/2024 9:15 AM CDT Height 172.7 cm (5' 8 ) 08/12/2024 9:15 AM CDT Body Mass Index 24.18 08/12/2024 9:15 AM CDT Plan of Treatment Health Maintenance Due Date Last Done Comments DTaP/Tdap/Td Vaccine (1 - Tdap) 07/21/1956 Hepatitis B Screening 1962 Lung Cancer Screening 1994 Zoster Vaccine (1 of 2) 1994 Well Visit 65+ 2009 Pneumococcal vaccine 65+ (2 of 2 - PPSV23) 05/02/2017 03/07/2017 Depression Screening 11/09/2018 11/09/2017 Fall Risk Assessment 04/13/2023 04/13/2022, 11/10/19 18 Foot Exam 12/30/2023 12/29/2022, 04/0 11/2022, 04/27/2022, Additional history exists Influenza Vaccine (#1) 2024 9, 02/20/2018, 03/07/2017, Additional history exists Hemoglobin A1C 02/12/2025 08/12/2024, 08/, 08/26/2022, Additional history exists Dilated Eye Exam 03/21/2025 03/21/2023, , 02/08/2021, Additional history exists Lipid Panel 04/26/2025 04/26/2024, 10/21, 03/10/2022, Additional history exists eGFR 04/26/2025 04/26/2024, 10/21, 11/11/2022, Additional history exists Albumin Creatinine Ratio, Urine 08/12/2025 08/12/2024, 08/02/2021, 07/17/2020, Additional history exists Procedures Procedure Name Priority Date/Time Associated Diagnosis Comments ALBUMIN CREATININE RATIO, URINE Routine 08/12/2024 12:00 PM CDT Type 2 diabetes mellitus with hyperglycemia, with long-term current use of insulin (HCC) POCT HEMOGLOBIN A1C Routine 08/12/2024 9 :24 AM CDT Type 2 diabetes mellitus with hyperglycemia, with long-term current use of insulin (HCC) POCT GLUCOSE Routine 08/12/2024 9:22 AM CDT Type 2 diabetes mellitus with hyperglycemia, with long-term current use of insulin (HCC) COMPREHENSIVE METABOLIC PANEL Routine 04/26/2024 LIPID PANEL Routine 04/26/2024 DIABETIC EYE EXAM Routine 03/21/2023 HM DIABETES FOOT EXAM Routine 11/09/2017 from Last 3 Months or Most Recently Relevant to Health Maintenance Results * Albumin Creatinine Ratio, Urine (08/12/2024 12:00 PM CDT) Albumin Ur <12.0 mg/L Comment: Interpretive Data [...] MD LAB URINE ORDERABLE S Final Result Performing Organization Address City/[facility]/ZIP Co de Phone Number [facility] BREEN [address] [address] [place] [address] * POCT hemoglobin A1c (08/12/2024 9:24 AM CDT) Hemoglobin A1C, POC 6.7 4.0 - 5.6 % Capillary blood 08/12/2024 9 :24 AM CDT César Currie MD POINT OF CARE TEST ORDERABLES Final Result * POCT glucose (08/12/2024 9:22 AM CDT) Glucose Blood, POC 250 mg/dL Blood 08/12/2024 9:22 AM CDT César Currie MD POINT OF CARE TEST ORDERABLES Final Result * (ABNORMAL) Lipid panel (04/26/2024) SCRIBED Cholesterol, Total 111(A) <200 - 0 EXTERNAL LAB SCRIBED HDL 42(A) >40 - 0 EXTERNAL LAB SCRIBED LDL 54(A) <100 - 0 EXTERNAL LAB SCRIBED Triglycerides 66(A) <150 - 0 EXTERNAL LAB Blood 04/26/2024 Darci Provider LAB BLOOD ORDERABLES Julieta l Result [...] Units/L EXTERNAL LAB SCRIBED eGFR in NonAfrican Romanian 89(A) >60 - 0 EXTERNAL LAB Blood 04/26/2024 Result [facility] Historical Provider LAB BLOOD ORDERABLES Julieta valdes Result EXTERNAL LAB * Diabetic Eye Exam (03/21/2023) 03/21/2023 Historical Provider HEALTH MAINTENANCE Final Result * DIABETES FOOT EXAM (11/09/2017) Diabetic Foot Exam Unknown Historical Provider HEALTH MAINTENANCE Final Result from Last 3 Months or Most Recently Relevant to Health Maintenance Insurance MEDICARE [facility] MEDICARE SUPPLEMENT INSURANCE [place] [id number] MEDICARE [facility] MEDICARE SUPPLEMENT INSURANCE [place] [id number] Advance Directives For more information, please contact: [phone] * LIMITED - No CPR (Latest Code [...] 7:59 PM 04/12/2022 8:06 PM Care Teams Technical Services Specialist Relationship Specialty Start Date End Date Robert Yo MD [address] [facility] [address] [place] [address] PCP - General Internal Medicine 01/14/21
--- OUTSIDE RECORDS SUMMARY | 2024-09-11 17:34 | XMS_ITS | Clinical Summary ---
Author Organization [facility] Address [address] [place] [address] Care Team Providers Care Hvac Service Manager Name Role Phone Mary Parra NP Primary Care Provider [phone] Allergies No known active allergies Medications No known medications Social History Tobacco Use Types Packs/Day Years Used Date Smoking Tobacco: Never Smokeless Tobacco: Never Tobacco Cessation:Counseling Given: Not Answered Sex and Gender Information Value Date Recorded Sex Assigned at Not on file Legal Sex Male 7:06 PM SUPPLY CHAIN CONSULTANT Gender Identity Not on file Sexual Orientation Not on file Last Filed Vital Signs Vital Sign Reading Time Taken Comments Blood Pressure 145/75 04/01/2023 8:52 PM SUPPLY CHAIN CONSULTANT Pulse 91 04/01/2023 8:52 PM SUPPLY CHAIN CONSULTANT Temperature 37.3 C (99.1 F) 04/01/2023 8:52 PM SUPPLY CHAIN CONSULTANT Respiratory Rate 20 04/01/2023 8:52 PM SUPPLY CHAIN CONSULTANT Oxygen Saturation 99% 04/01/2023 8:52 PM SUPPLY CHAIN CONSULTANT Inhaled Oxygen Concentration - - Weight 70.3 kg (155 lb) 04/01/2023 7:17 PM SUPPLY CHAIN CONSULTANT Height 172.7 cm (5' 8 ) 04/01/2023 7:17 PM SUPPLY CHAIN CONSULTANT Body Mass Index 23.57 04/01/2023 7:17 PM SUPPLY CHAIN CONSULTANT Plan of Treatment Health Maintenance Due Date Last Done Comments DTaP, Tdap and Td Vaccines (1 - Tdap) 07/21/1964 Zoster Vaccines (1 of 2) 1994 Annual Medicare Wellness Visit 2009 Pneumococcal Vaccine: 50+ Years (2 of 2 - PPSV23) 03/07/2018 03/07/2017 RSV Immunization or 60+ Years (1 - 1-dose 75+ series) 07/21/2019 COVID-19 Vaccine (2023- season) 2024 03/29/2022, 03/22/2021, 08/13/2020, Additional history exists Meningococcal B Vaccine Aged Out No l onger eligible based on patient's age to complete this topic Meningococcal Vaccine Aged Out No gwen edda eligible based on patient's age to complete this topic RSV Immunizations Under 20 Months Aged Out No longer eligible based on patient's age to complete this topic Insurance MEDICARE Member Subscriber Plan / Payer (Ef fective 2023-Present) Name:Kody Paul Relation to Subscriber:Self Name:Kody Paul Mar Payer ID:Not on file Group ID:Not on file Type:[facility] Address: [facility] [address] [place] [address] [facility] Member Subscriber Plan / Payer (Ef fective 2017-Present) Name:Kody Paul Relation to Subscriber:Self Name:Kody Paul Payer ID:Not on file Group ID:Not on file Type:[facility] Address: [address] [place] [id number] Care Teams Hvac Service Manager Relationship Specialty Start Date End Date Mary Parra NP [address] [place] [address] PCP - General Nurse Practitioner Family 04/01/23
--- OUTSIDE RECORDS SUMMARY | 2024-09-11 17:35 | XMS_ITS | Continuity of Care Document ---
Author Organization [facility] Address [address] [facility] [address] [place] [address] Phone Care Team Providers Care Channel Man Name Role Phone Paige Morejon Unavailable Unavailable [...] Providers Copied on Encounter Office/outpat ient Visit, [facility] [place], [address] [place] [address] [address], [place], [place], [id number], [place] tel:[phone] [facility] No Information [phone] 0 Darleen Alfredo [address] , [address], [place], [place], [facility], [place]. tel:[phone] Office/outpat ient Visit, [facility] [place], [address] [place] [address] [address], [place], [place], [id number], [place] tel:[phone] [facility] No Information 3-201 0 Darleen Alfredo [address] , [address], [place], [address], [place]. tel:[phone] [facility], [address] [place] [address] [address], [place], [place], [id number], tel:[phone] [facility] No Information Dec-0 4-200 9 Darleen Gibson. [address] , [address], [place], [place], [facility], . tel:[phone] Referring Provider: Ariadne [address], [place], [place], [facility]. tel:[phone] Office/outpat ient Visit, [facility], [address] [place] [address] [address], [place], [place], [id number], tel:[phone] [facility] No Information Oct-1 3-200 9 Darleen Alfredo [address] [facility] , [address], [place], [place], [facility], . tel:[phone] [facility], [address] [place] [address] [address], [place], [place], [address], tel:[phone] [facility] No Information Sep-0 9-200 8 Darleen Gibson. [address] , [address], [place], [facility], . tel:[phone] [facility], [address] [place] [address] [address], [place], [place], [id number], tel:[phone] [facility] No Information Aug-2 8-200 7 Darleen Alfredo [address] , [address], [place], [place], [facility], . tel:[phone] Family History Family Member Type Diagnosis Age At Onset No Information Payers Payer name Insurance type Covered alliance party ID Authoriza tion(s) [place] [id number] [place] [id number] Social History Type Description Quantity Date Captured [...]
== END 2024-09-11 16:47 | disposition home or self-care (01) ==
PROVIDERS: Emergency Provider Nurse Practitioner; PCP Nurse Practitioner Family
DX: K52.9 Noninfective gastroenteritis and colitis, unspecified (principal); E11.9 Type 2 diabetes mellitus without complications; N40.0 Benign prostatic hyperplasia without lower urinary tract symptoms; E78.2 Mixed hyperlipidemia; H26.9 Unspecified cataract; Z86.73 Personal history of transient ischemic attack (TIA), and cerebral infarction without residual deficits; Z20.822 Contact with and (suspected) exposure to COVID-19
CPT/HCPCS: 87426; 87804; 99213; G0463